=== PATIENT | male | born 2000 | race Two or more races ===

== ENCOUNTER 2021-01-18 02:45 | Emergency (ER) | payer SELFPAY ==
[~2021-01-18] VITALS: Ht 193 cm; Wt 136.5 kg
[2021-01-18] MEDS ORDERED: NEOMYCIN-BACITRACIN-POLYM UNITDOSE PKG TOP OINT TOP ONE (04:30)
[2021-01-18] MEDS ORDERED: CEPH500T PO (05:07)
[2021-01-18] MEDS ORDERED: IBUP800T27 PO (05:07)
[2021-01-18 05:11] VITALS: BP 129/84
== END 2021-01-18 05:48 | disposition home or self-care (01) ==
LOC: ER 02:45
DX: S01.112A Laceration without foreign body of left eyelid and periocular area, initial encounter (principal); W22.8XXA Striking against or struck by other objects, initial encounter; Y93.89 Activity, other specified; Y92.89 Other specified places as the place of occurrence of the external cause; Y99.8 Other external cause status
CPT/HCPCS: 12011; J2001